=== PATIENT | male | born 1970 | race Two or more races ===

== ENCOUNTER 2024-07-16 17:19 | Emergency (ER) | payer MEDICAID, OTHER ==
[~2024-07-16] VITALS: Ht 177.8 cm; Wt 126.0 kg
--- NOTE | 2024-07-16 17:39 | ED.PDOC ---
GI ASSESSMENT HPI Comments 53 year old male presents to the ED with chief complaint of abdominal pain. Patient reports that he has been experiencing RUQ/epigastric abdominal pain intermittently for the past 2 weeks. Patient relays that his pain is worsened after earing and his pain radiates to the back. Patient denies any N/V/D, dizziness, fever, chills, chest pain, or dysuria. Time Seen by MD: 17:29 Reviewed Notes: Nurses Notes, Medications, Allergies Allergies: Coded Allergies: NO KNOWN ALLERGIES (Unverified , 07/16/24) Information Source: Patient Mode of Arrival: Ambulatory Timing: Weeks Duration: Intermittent Prehospital treatment: None Quality: Sharp Vomitus: None Stool: Normal Severity: Moderate Recent: None Recent Hx of: None Pain Location: Epigastric, RUQ Modifying Factors: Food Associated sign and symptoms: Abdominal Pain Past Medical History PAST MEDICAL HISTORY: Denies Surgical History: Denies all surgeries Family History Family History: Reviewed,noncontributory to illness Social History Smoker: Non-Smoker Alcohol: Denies ETOH Use Drugs: Denies Drug Use Lives In: Home Constitutional: denies: chills, diaphoresis, fatigue, fever, malaise, sweats, weakness, others EENTM: denies: blurred vision, double vision, ear bleeding, ear discharge, ear drainage, ear pain, ear ringing, eye pain, eye redness, hearing loss, mouth pain, mouth swelling, nasal discharge, nose bleeding, nose congestion, nose pain, photophobia, tearing, throat pain, throat swelling, voice changes, others Respiratory: denies: cough, hemoptysis, orthopnea, SOB at rest, shortness of breath, SOB with excertion, stridor, wheezing, others Cardiovascular: denies: chest pain, dizzy spells, diaphoresis, Dyspnea on exertion, edema, irregular heart beat, left arm pain, lightheadedness, palpitations, PND, syncope, others Gastrointestinal: reports: abdominal pain (RUQ, Epigastric); denies: abdomen distended, blood streaked bowels, constipated, diarrhea, dysphagia, difficulty s wallowing, hematemesis, melena, nausea, poor appetite, poor fluid intake, rectal bleeding, rectal pain, vomiting, others Genitourinary: denies: burning, dysuria, flank pain, frequency, hematuria, incontinence, penile discharge, penile sore, pain, testicle pain, testicle swelling, urgency, others Neurological: denies: dizziness, fainting, headache, left sided numbness, left sided weakness, numbness, paresthesia, pre-existing deficit, right sided numbness, right sided weakness, seizure, speech problems, tingling, tremors, weakness, others Musculoskeletal: denies: back pain, gout, joint pain, joint swelling, muscle pain, muscle stiffness, neck pain, others Integumetry: denies: bruises, change in color, change in hair/nails, dryness, laceration, lesions, lumps, rash, wounds, others Allergic/Immunocompromised: denies: Difficulty Healing, Frequent Infections, Hives, Itching, others Hematologic/Lymphatic: denies: anemia, blood clots, easy bleeding, easy bruising, swollen glands, others Endocrine: denies: excessive hunger, excessive sweating, excessive thirst, excessive urination, flushing, intolerance to cold, intolerance to heat, unexplained weight gain, unexplained weight loss, others Psychiatric: denies: anxiety, bipolar disorder, depression, hopeless, panic disorder, schizophrenia, sleepless, suicidal, others All Other Systems: Reviewed and Negative Physical Exam General Appearance: No Apparent Distress, Normal HEENT: Normal ENT Inspection, PERRL/EOMI Neck: Full Range of Motion, Non-Tender, Normal, Normal Inspection Respiratory: Chest Non-Tender, Lungs Clear, No Accessory Muscle Use, No Respiratory Distress, Normal Breath Sounds Cardiovascular: No Edema, No JVD, No Murmur, No Gallop, Normal Peripheral Pulses, Regular Rate/Rhythm Breast Exam: Deferred Gastrointestinal: Epigastric, No Organomegaly, No Pulsatile Mass, Normal Bowel Sounds, RLQ, Soft, Tenderness Genitalia: Deferred Pelvic: Deferred Rectal: Deferred Extremities: No calf tenderness, Normal capillary refill, Normal inspection, Normal range of motion, Non-tender, No pedal edema Musculoskeletal : Apperance: Normal Neurologic: Alert, 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 Was a procedure done?: No GI differential Dx Differential Diagnosis: Bowel Obstruction, Cholangitis, Cholecystitis, Constipation, Diverticular disease, Gastritis/PUD, Gastroenteritis, Hernia, Hepatitis, Inflammatory BD, Ischemic Bowel, UTI, Electrolyte Imbalance, Food Poisoning, , Bacterial, Parasitic, Viral, Impaction X-Ray, Labs, Meds, VS Vital Signs Date Time Temp Pulse Resp B/P (MAP) Pulse Ox O2 Delivery O2 Flow Rate FiO2 07/16/24 18:40 79 17 96 Room Air 07/16/24 18:40 98.7 79 17 142/85 (104) 96 98.7 07/16/24 17:31 97.8 63 16 144/71 (95) 97 Lab Test 07/16/24 21:25 Range/Units White Blood Count 10.0 4.4-10.8 10^3/uL Red Blood Count 4.60 4.5-5.90 10^6/uL Hemoglobin 14.4 13.5-17.5 g/dL Hematocrit 42.3 41.0-53.0 % Mean Corpuscular Volume 92.0 80.0-100.0 fL Mean Corpuscular Hemoglobin 31.2 28.0-32.0 pg Mean Corpuscular Hemoglobin Concent 34.0 32.0-36.0 g/dL Red Cell Distribution Width 13.5 11.8-14.3 % Platelet Count 332 140-450 10^3/uL Mean Platelet Volume 7.0 6.9-10.8 fL Neutrophils (%) (Auto) 59.1 37.0-80.0 % Lymphocytes (%) (Auto) 32.0 10.0-50.0 % Monocytes (%) (Auto) 7.1 0.0-12.0 % Eosinophils (%) (Auto) 1.4 0.0-7.0 % Basophils (%) (Auto) 0.4 0.0-2.0 % Neutrophils # (Auto) 5.9 1.6-8.6 10 ^3/uL Lymphocytes # (Auto) 3.2 0.4-5.4 10 ^3/uL Monocytes # (Auto) 0.7 0-1.3 10 ^3/uL Eosinophils # (Auto) 0.1 0-0.8 10 ^3/uL Basophils # (Auto) 0 0-0.2 10 ^3/uL Nucleated Red Blood Cells 0.1 % Sodium Level 139 136-145 mmol/L Potassium Level 4.4 3.5-5.1 mmol/L Chloride Level 105 98-107 mmol/L Carbon Dioxide Level 30 20-31 mmol/L Anion Gap 4 L 5-15 Blood Urea Nitrogen 8 L 9-23 mg/dL Creatinine 1.13 0.700-1.30 mg/dL Glomerular Filtration Rate Calc 79 >90 mL/min BUN/Creatinine Ratio 7.1 L 10.0-20.0 Serum Glucose 89 74-106 mg/dL Calcium Level 9.9 8.7-10.4 mg/dL Total Bilirubin 0.7 0.2-1.0 mg/dL Aspartate Amino Transferase (AST) 22 13-40 U/L Alanine Aminotransferase (ALT) 30 7-40 U/L Alkaline Phosphatase 83 46-116 U/L Total Protein 7.5 5.7-8.2 g/dL Albumin 4.8 3.2-4.8 g/dL Lipase 41 12-53 U/L Current Medications Medications (Trade) Dose Ordered Sig/Mi Route Start Time Stop Time Status Last Admin Ondansetron HCl (Zofran Po) 4 mg ONCE ONCE PO 07/16/24 17:30 07/16/24 17:39 DC 07/16/24 18:38 Acetaminophen/ Hydrocodone Bitart ([place] 5/325MG Tab) 1 tab ONCE ONCE PO 07/16/24 17:30 07/16/24 17:39 DC 07/16/24 18:38 [place] [id number] Ph: [phone] DIAGNOSTIC IMAGING Diagnostic Imaging Report : [id number] Signed PATIENT: FABIANA GEIGERSUKICCT: [id number] UNIT: [id number] : 1970 LOC: ER ROOM / BED: / AGE / SEX: 53 / M ADM STATUS: REG ER SERVICE [id number] ORDERING PHYSICIAN: GARRY FAULKNER MD PROCEDURE(s): GBUS - GALLBLADDER REASON: r/o gs ORDER NUMBER(s): [id number], ACCESSION NUMBER(s): [id number] INDICATION: r/o gs TECHNIQUE: Multiple real-time sonographic images of the abdomen were obtained. COMPARISON: None FINDINGS: Increased echogenicity of the hepatic parenchyma suggesting steatosis. The liver measures 15.4 cm. No intrahepatic biliary ductal dilatation is noted. The gallbladder wall measures 0.22 cm and is unremarkable. Stones and sludge noted in the neck of the gallbladder.. The common duct not visualized. No pericholecystic fluid is noted. Ultrasound Abrams's sign is negative. The right kidney measures 12.47 cm. No hydronephrosis. The pancreas is not well visualized due to obscuration from bowel gas. The visualized portions of the IVC and aorta are grossly unremarkable. IMPRESSION: 1. Stones sludge in the neck of the gallbladder. Negative ultrasound Abrams's sign is elicited. The common bile duct was not visible. There is no thickening of the gallbladder wall. 2. Liver measures 15.4 cm in length with findings suggesting steatosis. 3. Right kidney measures 12.47 cm in length there is no hydronephrosis. ATED BY: PARMINDER DANIELLE Jr., DO DICTATED DATE/TIME: 07/16/241801 SIGNED BY: PARMINDER DANIELLE Jr., SIGNED DATE/TIME: 07/16/241801 CC: Time of 1ST Reevaluation: 18:29 Reevaluation 1ST: Unchanged Patient Education/Counseling: Diagnosis, Treatment, Prognosis Family Education/Counseling: No Family Present Additional Information - The following tests were ordered, and results were reviewed by me: Gallbladder US, CBC, Lipase, BMP - I reviewed and agreed with the following test results read by other provider: Gallbladder US - I discussed treatments and results with medical personnel. Departure 1 Departure Time of Disposition: 23:05 Impression: Primary Impression: Cholelithiasis Qualified Codes: K80.20 - Calculus of gallbladder without cholecystitis without obstruction Disposition: 01 HOME / SELF CARE / HOMELESS Condition: Good e-Prescriptions Hydrocodone-Acetaminophen (Hydrocodone Bitartrate/AC 5-325 mg) 1 Tab Tab 1 TAB PO Q6HP PRN for 3 Days, #12 TAB Prov: GARRY FAULKNER MD 07/16/24 Discharged With: Self Critical Care Note Critical Care Time?: No Stability Stability form required: No Heart Score Heart Score: Heart Score Response (Comments) Value History N/A 0 EKG N/A 0 Age N/A 0 Risk Factors N/A 0 Troponin N/A 0 Total 0 I personally scribed for GARRY FAULKNER MD ([email or web address] on 07/16/24 at 17:39. Electronically submitted by Goran Lomax ([email or web address]). I personally scribed for GARRY FAULKNER MD ([email or web address]) on 07/16/24 at 22:15. Electronically submitted by Tere Friedman ([email or web address]). GARRY FAULKNER MD Jul 16, 2024 17:39
--- NOTE | 2024-07-16 18:04 | DVH ---
INDICATION: r/o gs TECHNIQUE: Multiple real-time sonographic images of the abdomen were obtained. COMPARISON: None FINDINGS: Increased echogenicity of the hepatic parenchyma suggesting steatosis. The liver measures 15.4 cm. No intrahepatic biliary ductal dilatation is noted. The gallbladder wall measures 0.22 cm and is unremarkable. Stones and sludge noted in the neck of t he gallbladder.. The common duct not visualized. No pericholecystic fluid is noted. Ultrasound Hermelinda y's sign is negative. The right kidney measures 12.47 cm. No hydronephrosis. The pancreas is not well visualized due to obscuration from bowel gas. The visualized portions of the IVC and aorta are grossly unremarkable. IMPRESSION: 1. Stones sludge in the neck of the gallbladder. Negative ultrasound Abrams's sign is elicited. The common bile duct was not visible. There is no thickening of the gallbladder wall. 2. Liver measures 15.4 cm in length with findings suggesting steatosis. 3. Right kidney measures 12.47 cm in length there is no hydronephrosis.
[2024-07-16] MEDS: ONDANSETRON ODT 4 MG TAB PO ONE (18:38)
[2024-07-16] MEDS: HYDROcodone-ACET 5/325MG TAB PO ONE (18:38)
[2024-07-16 21:54] LABS: Basophils # (auto) 0 10 ^3/uL (0-0.2); Basophils % (auto) 0.4 % (0.0-2.0); Eosinophils # (auto) 0.1 10 ^3/uL (0-0.8); Eosinophils % (auto) 1.4 % (0.0-7.0); Hematocrit 42.3 % (41.0-53.0); Hemoglobin 14.4 g/dL (13.5-17.5); Lymphocytes # (auto) 3.2 10 ^3/uL (0.4-5.4); Mean Corpuscular Hemoglobin 31.2 pg (28.0-32.0); Monocytes # (auto) 0.7 10 ^3/uL (0-1.3); Monocytes % (auto) 7.1 % (0.0-12.0); Neutrophils # (auto) 5.9 10 ^3/uL (1.6-8.6); Neutrophils % (auto) 59.1 % (37.0-80.0); Nucleated Red Blood Cells % 0.1 %; Platelet Count (auto) 332 10^3/uL (140-450); Red Cell Distribution Width 13.5 % (11.8-14.3)
[2024-07-16 22:13] LABS: Alanine Aminotransferase 30 U/L (7-40); Albumin 4.8 g/dL (3.2-4.8); Alkaline Phosphatase 83 U/L (46-116); Anion Gap 4 (5-15); Aspartate Aminotransferase 22 U/L (13-40); BUN/Creatinine Ratio 7.1 (10.0-20.0); Calcium 9.9 mg/dL (8.7-10.4); Carbon Dioxide 30 mmol/L (20-31); Chloride 105 mmol/L (98-107); Lipase 41 U/L (12-53); Potassium 4.4 mmol/L (3.5-5.1); Sodium 139 mmol/L (136-145)
[2024-07-16 22:14] LABS: Bilirubin, Total 0.7 mg/dL (0.2-1.0); Blood Urea Nitrogen 8 mg/dL (9-23); Total Protein 7.5 g/dL (5.7-8.2)
[2024-07-16 22:16] LABS: Glucose 89 mg/dL (74-106)
[2024-07-16] MEDS ORDERED: HYDR-4902 PO (23:08)
[2024-07-16 23:55] VITALS: BP 97/68; PULSE 61; RESP 18; TEMP 97.6; O2SAT 99
== END 2024-07-17 00:03 | disposition home or self-care (01) ==
LOC: ER 17:19
DX: K80.20 Calculus of gallbladder without cholecystitis without obstruction (principal)
CPT/HCPCS: 36415; 76705; 80053; 83690; 85025; 99284; Q0162